=== PATIENT | female | born 1975 | race Caucasian/White ===

== ENCOUNTER 2018-03-14 11:40 | Emergency (ER) | payer OTHER ==
[~2018-03-14] VITALS: Ht 152.4 cm; Wt 127.0 kg
[2018-03-14 12:28] VITALS: BP 134/77
== END 2018-03-14 13:12 | disposition home or self-care (01) ==
LOC: ER 11:46
DX: L03.317 Cellulitis of buttock (principal)

== ENCOUNTER 2018-08-07 12:18 | Emergency (ER) | payer OTHER ==
[~2018-08-07] VITALS: Ht 152.4 cm; Wt 117.9 kg
[2018-08-07 12:45] VITALS: BP 156/95
== END 2018-08-07 13:53 | disposition home or self-care (01) ==
LOC: ER 12:18
DX: B35.6 Tinea cruris (principal)

== ENCOUNTER 2019-05-17 11:21 | Emergency (ER) | payer OTHER ==
[~2019-05-17] VITALS: Ht 152.4 cm; Wt 117.5 kg
[2019-05-17 11:40] VITALS: BP 123/81
[2019-05-17] MEDS ORDERED: IPRATROPIUM BROM 0.5 MG/2.5ML INH SOL NEB ONE (12:30)
[2019-05-17] MEDS ORDERED: ALBUTEROL SULF 2.5 MG/0.5ML(0.5%) NEB SOLN NEB ONE (12:30)
[2019-05-17] MEDS ORDERED: methylPREDNISolone SOD SUCC 125 MG/2 ML VL IM ONE (12:30)
== END 2019-05-17 13:13 | disposition home or self-care (01) ==
LOC: ER 11:25
DX: J20.9 Acute bronchitis, unspecified (principal)
CPT/HCPCS: 71046; 94640; 96372; 99283; J2930; J7644

== ENCOUNTER 2021-01-06 08:37 | Emergency (ER) | payer OTHER ==
[~2021-01-06] VITALS: Ht 152.4 cm; Wt 108.9 kg
[2021-01-06 09:04] VITALS: BP 124/80
[2021-01-06] MEDS ORDERED: LACTULOSE 20Gm/30ML SOLN PO ONE (09:30)
== END 2021-01-06 09:40 | disposition home or self-care (01) ==
LOC: ER 08:37
DX: K59.00 Constipation, unspecified (principal); K64.4 Residual hemorrhoidal skin tags; I10 Essential (primary) hypertension; Z86.73 Personal history of transient ischemic attack (TIA), and cerebral infarction without residual deficits
CPT/HCPCS: 74018

== ENCOUNTER 2022-11-19 10:01 | Emergency (ER) | payer OTHER ==
[~2022-11-19] VITALS: Ht 152.4 cm; Wt 123.0 kg
[2022-11-19 10:34] VITALS: BP 135/72; PULSE 82; RESP 18; TEMP 97.2; O2SAT 97
[2022-11-19] MEDS ORDERED: IBUP-1455 PO (11:42)
== END 2022-11-19 11:44 | disposition home or self-care (01) ==
LOC: ER 10:01
DX: S96.912A Strain of unspecified muscle and tendon at ankle and foot level, left foot, initial encounter (principal); M25.472 Effusion, left ankle; W18.09XA Striking against other object with subsequent fall, initial encounter; Y93.E1 Activity, personal bathing and showering; Y92.89 Other specified places as the place of occurrence of the external cause; Y99.8 Other external cause status
CPT/HCPCS: 73610; 73620

== ENCOUNTER 2023-07-15 13:52 | Emergency (ER) | payer OTHER ==
[~2023-07-15] VITALS: Ht 152.4 cm; Wt 134.0 kg
[~2023-07-15 13:52] MED LIST: IBUP-1455 PO
[2023-07-15 16:23] LABS: Urine Bacteria None Seen /hpf (None Seen)
[2023-07-15 16:43] LABS: Urine Blood 3+ /uL (Negative); Urine Clarity Ex.Turbid (Clear); Urine Color Light-Red (Yellow); Urine Protein, UAD 2+ (Negative); Urine Specific Gravity 1.019 (1.001-1.035); Urine Urobilinogen Normal (Negative); Urine WBC 985 /hpf (0 - 5)
[2023-07-15 18:26] VITALS: BP 145/77; PULSE 16; RESP 96; TEMP 97; O2SAT 89
[2023-07-15] MEDS ORDERED: NITR-52 PO (19:08)
== END 2023-07-15 19:30 | disposition home or self-care (01) ==
LOC: ER 13:52
DX: N39.0 Urinary tract infection, site not specified (principal); E11.9 Type 2 diabetes mellitus without complications; I10 Essential (primary) hypertension; Z86.73 Personal history of transient ischemic attack (TIA), and cerebral infarction without residual deficits
CPT/HCPCS: 81001

== ENCOUNTER 2024-01-22 10:18 | Emergency (ER) | payer OTHER ==
[~2024-01-22] VITALS: Ht 152.4 cm; Wt 120.2 kg
[~2024-01-22 10:18] MED LIST changes: +NITR-52 PO
--- NOTE | 2024-01-22 11:23 | ED.PDOC ---
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 Chief Complaint: Animal Bite Time Seen by MD: 10:36 Primary Care Provider: DR BOWSER History of Present Illness: Nurses Notes, Medications, Allergies Allergies: Coded Allergies: NO KNOWN ALLERGIES (Unverified , 03/14/18) Home Meds Active Scripts Nitrofurantoin (Nitrofurantoin) 100 Mg Cap, 1 CAP PO BID for 7 Days, #14 CAP Prov:ANJANA BRADSHAW PAC 07/15/23 Ibuprofen Micronized (Ibuprofen) 800 Mg Tab, 800 MG PO TID, #30 TAB Prov:DEVAN MENDOZA SALESFORCE CONSULTANT 11/19/22 Information Source: Patient Mode of Arrival: Ambulatory Past Medical History PAST MEDICAL HISTORY: Anxiety, CVA, HTN Surgical History: Denies all surgeries LCSW History: No Pertinent LCSW History Family History Family History: Reviewed,noncontributory to illness Social History Smoker: Non-Smoker Lives In: Home All Other Systems: Reviewed and Negative (Per HPI) Physical Exam General Appearance: No Apparent Distress, Normal HEENT: Normal ENT Inspection, Pharynx Normal, TMs Normal Neck: Full Range of Motion, Non-Tender, Normal, Normal Inspection Respiratory: Chest Non-Tender, Lungs Clear, No Accessory Muscle Use, No Respiratory Distress, Normal Breath Sounds Cardiovascular: No Edema, No JVD, No Murmur, No Gallop, Normal Peripheral Pulses, Regular Rate/Rhythm Breast Exam: Deferred Gastrointestinal: No Organomegaly, Non Tender, No Pulsatile Mass, Normal Bowel Sounds, Soft Genitalia: Deferred Pelvic: Deferred Rectal: Deferred Extremities: No calf tenderness, Normal capillary refill, Normal inspection, Normal range of motion, Non-tender, No pedal edema Musculoskeletal : Apperance: Normal Neurologic: Alert, sandblast or shotblast equipment tender II-XII nml as Tested, No Motor Deficits, Normal Affect, Normal Mood, No Sensory Deficits Cerebellar Function: Normal Reflexes: Normal Skin: Dry, Normal Color, Warm Lymphatic: No Adenopathy Was a procedure done? Was a procedure done?: No Images 1 - pin point wound. Distal neuro sensation intact. Full ROM. Cap refill less than 2 seconds Differential Diagnosis (INTG) Differential Diagnosis: Cellulitis, Contusion, Hematoma, Puncture Wound X-Ray, Labs, Meds, VS Vital Signs Date Time Temp Pulse Resp B/P (MAP) Pulse Ox O2 Delivery O2 Flow Rate FiO2 01/22/24 11:26 97.6 82 18 156/100 (118) 99 97.6 01/22/24 11:26 82 18 99 Room Air 01/22/24 11:10 84 01/22/24 10:34 97.4 86 16 152/99 (116) 99 Lab Test 01/22/24 12:00 01/22/24 11:26 Range/Units White Blood Count 8.4 4.4-10.8 10^3/uL Red Blood Count 4.04 4.0-5.20 10^6/uL Hemoglobin 10.3 L 12.2-16.2 g/dL Hematocrit 31.7 L 36.0-46.0 % Mean Corpuscular Volume 78.6 L 80.0-100.0 fL Mean Corpuscular Hemoglobin 25.5 L 28.0-32.0 pg Mean Corpuscular Hemoglobin Concent 32.5 32.0-36.0 g/dL Red Cell Distribution Width 16.0 H 11.8-14.3 % Platelet Count 406 140-450 10^3/uL Mean Platelet Volume 7.3 6.9-10.8 fL Neutrophils (%) (Auto) 60.7 37.0-80.0 % Lymphocytes (%) (Auto) 30.6 10.0-50.0 % Monocytes (%) (Auto) 4.7 0.0-12.0 % Eosinophils (%) (Auto) 3.1 0.0-7.0 % Basophils (%) (Auto) 0.9 0.0-2.0 % Neutrophils # (Auto) 5.1 1.6-8.6 10 ^3/uL Lymphocytes # (Auto) 2.6 0.4-5.4 10 ^3/uL Monocytes # (Auto) 0.4 0-1.3 10 ^3/uL Eosinophils # (Auto) 0.3 0-0.8 10 ^3/uL Basophils # (Auto) 0.1 0-0.2 10 ^3/uL Nucleated Red Blood Cells 0.1 % Sodium Level 138 136-145 mmol/L Potassium Level 4.1 3.5-5.1 mmol/L Chloride Level 106 98-107 mmol/L Carbon Dioxide Level 29 20-31 mmol/L Anion Gap 3 L 5-15 Blood Urea Nitrogen 8 L 9-23 mg/dL Creatinine 1.08 H 0.550-1.02 mg/dL Glomerular Filtration Rate Calc 64 >90 mL/min BUN/Creatinine Ratio 7.4 L 10.0-20.0 Serum Glucose 104 74-106 mg/dL Calcium Level 9.7 8.7-10.4 mg/dL Urine Color Yellow Yellow Urine Clarity Turbid H Clear Urine pH 6.0 5.0-9.0 Urine Specific [place] 1.021 1.001-1.035 Urine Protein Trace H Negative Urine Ketones Negative Negative Urine Blood Negative Negative /uL Urine Nitrite Negative Negative Urine Bilirubin Negative Negative Urine Urobilinogen Normal Negative mg/dL Urine Leukocyte Esterase Negative Negative /uL Urine RBC 1 0 - 4 /hpf Urine WBC 6 0 - 5 /hpf Urine Squamous Epithelial Cells Mod <5 /hpf Urine Bacteria Few H None Seen /hpf Urine Mucus Few None Seen Urine Glucose Normal Normal mg/dL Current Medications Medications (Trade) Dose Ordered Sig/Shar Route Start Time Stop Time Status Last Admin Diphtheria/ Tetanus/Acell Pertussis (Boostrix T-Dap) 0.5 ml ONCE ONCE IM 01/22/24 11:30 01/22/24 11:31 DC 01/22/24 12:33 Ampicillin Sodium/ Sulbactam Sodium 3 gm/Sodium Chloride 100 ml @ 100 mls/hr ONCE ONCE IV 01/22/24 11:30 01/22/24 12:29 DC 01/22/24 12:38 [id number]: [id number] : 1975 LOC: ER ROOM / BED: / AGE / SEX: 48 / F ADM STATUS: REG ER SERVICE 1121 ORDERING PHYSICIAN: KODAK JAMES NP PROCEDURE(s): LHAN - L HAND 3V XRAY REASON: Dog bite ORDER NUMBER(s): [id number], ACCESSION NUMBER(s): [id number] CLINICAL INDICATION: Dog bite TECHNIQUE: XY L HAND 3V XRAY Comparison: None FINDINGS: There is no evidence of acute fracture or dislocation. The visualized joint space is well maintained. The alignment is anatomical. There is no radiopaque foreign body. IMPRESSION: No acture fracture ATED BY: MARIAM CAGE MD DICTATED DATE/TIME: 01/22/241212 SIGNED BY: MARIAM CAGE MD SIGNED DATE/TIME: 01/22/241212 CC: X-Ray, Labs, Meds, VS Comment Discharge with strict follow-up in 24 to 48 hours for wound recheck No signs of systemic illness, no signs of cellulitis Prescribed p.o. antibiotics for presentation of symptoms Complete course of antibiotic therapy even if symptoms improve or resolve. There should be no leftover antibiotics as this can lead to antibiotic resistant bacteria and even worse infection. Patient verbalized understanding. Potential side effects discussed with patient including abdominal pain, nausea, diarrhea. Recommended probiotics and return precautions given Persistent diarrhea Dehydration Blood in stool Ill-appearing Patient is stable for discharge at this time. External notes reviewed. Test results and diagnostic imaging interpreted. All diagnostic findings, discharge care, education and instructions provided Follow-up with PCP in 2 to 3 days Patient verbalized understanding and agreed to treatment plan Vital signs stable, afebrile, no acute distress noted Patient ambulatory with strong steady gait Advised to return precautions for any new or worsening symptoms, return to ER immediately for re-evaluation Patient is aware that the purpose of this visit was for an acute medical emergency requiring emergent stabilization. Chronic conditions, including malignancies have not been ruled out. Patient is instructed to follow up with PCP as directed and discharge instructions for continued care and workup. If unable to arrange follow-up, patient is to return to the emergency department for reassessment. Patient (parent or legal guardian if applicable) was given verbal and written discharge instructions and acknowledges understanding. Time of 1ST Reevaluation: 11:21 Reevaluation 1ST: Improved Patient Education/Counseling: Diagnosis, Treatment Family Education/Counseling: Diagnosis, Treatment Departure 1 Departure Time of Disposition: 13:18 Impression: Primary Impression: Dog bite Qualified Codes: W54.0XXA - Bitten by dog, initial encounter Disposition: HOME / SELF CARE / HOMELESS Condition: Stable e-Prescriptions Ibuprofen (Ibuprofen) 600 Mg Tab 1 TAB PO TID for 10 Days, #30 TAB 0 Refills Prov: KODAK JAMES NP 01/22/24 Amoxicillin & Pot Clavulanate (AUGMENTIN TABLET) 875 Mg Tb 875 MG PO BID for 7 Days, #14 TAB 0 Refills Prov: KODAK JAMES NP 01/22/24 Discharged With: Self Critical Care Note Critical Care Time?: No Stability Stability form required: No Heart Score Heart Score: Heart Score Response (Comments) Value History N/A 0 EKG N/A 0 Age N/A 0 Risk Factors N/A 0 Troponin N/A 0 Total 0 KODAK JAMES NP Jan 22, 2024 11:22
[2024-01-22 11:26] VITALS: TEMP 97.6
--- NOTE | 2024-01-22 12:15 | DVH ---
CLINICAL INDICATION: Dog bite TECHNIQUE: XY L HAND 3V XRAY Comparison: None FINDINGS: There is no evidence of acute fracture or dislocation. The visualized joint space is well maintained. The alignment is anatomical. There is no radiopaque foreign body. IMPRESSION: No acture fracture
[2024-01-22 12:16] LABS: Basophils # (auto) 0.1 10 ^3/uL (0-0.2); Basophils % (auto) 0.9 % (0.0-2.0); Eosinophils # (auto) 0.3 10 ^3/uL (0-0.8); Eosinophils % (auto) 3.1 % (0.0-7.0); Hematocrit 31.7 % (36.0-46.0); Hemoglobin 10.3 g/dL (12.2-16.2); Lymphocytes # (auto) 2.6 10 ^3/uL (0.4-5.4); Lymphocytes % (auto) 30.6 % (10.0-50.0); Mean Corpuscular Hemoglobin 25.5 pg (28.0-32.0); Mean Corpuscular Hgb Conc. 32.5 g/dL (32.0-36.0); Mean Corpuscular Volume 78.6 fL (80.0-100.0); Monocytes # (auto) 0.4 10 ^3/uL (0-1.3); Monocytes % (auto) 4.7 % (0.0-12.0); Neutrophils # (auto) 5.1 10 ^3/uL (1.6-8.6); Neutrophils % (auto) 60.7 % (37.0-80.0); Nucleated Red Blood Cells % 0.1 %; Platelet Count (auto) 406 10^3/uL (140-450); Red Blood Cells 4.04 10^6/uL (4.0-5.20); White Blood Cell 8.4 10^3/uL (4.4-10.8)
[2024-01-22 12:30] LABS: Chloride 106 mmol/L (98-107); Potassium 4.1 mmol/L (3.5-5.1); Sodium 138 mmol/L (136-145)
[2024-01-22 12:31] LABS: Anion Gap 3 (5-15); Calcium 9.7 mg/dL (8.7-10.4); Carbon Dioxide 29 mmol/L (20-31)
[2024-01-22] MEDS: TETANUS-DIPTH-ACEL PERTUSSIS 0.5ML SYR Tdap IM ONE (12:33)
[2024-01-22 12:36] LABS: BUN/Creatinine Ratio 7.4 (10.0-20.0); Blood Urea Nitrogen 8 mg/dL (9-23); Glucose 104 mg/dL (74-106)
[2024-01-22] MEDS: AMPICILLIN & SULBACTAM SODIUM 3 GM in SODIUM CHL 0.9% 100 ML IV ONE (12:38)
[2024-01-22 12:44] LABS: Urine Bacteria FEW /hpf (None Seen); Urine Blood Negative /uL (Negative); Urine Clarity Turbid (Clear); Urine Color Yellow (Yellow); Urine Mucus FEW (None Seen); Urine Protein, UAD TRACE (Negative); Urine Specific Gravity 1.021 (1.001-1.035); Urine Urobilinogen Normal (Negative); Urine WBC 6 /hpf (0 - 5)
--- NOTE | 2024-01-22 12:52 | ECG ---
[facility] Test Date: 2024-01-22 Test Time: 11:10:08 Pat Name: OZIEL ANDINO Department: ER Room: Gender: F Preparator: GP : 1975 Requested By: KODAK JAMES Order Number: [id number] Reading MD: Measurements Intervals [place] Rate: 84 P: 32 NV: 198 QRS: 52 QRSD: 80 T: 31 QT: 361 QTc: 427 Interpretive Statements Sinus rhythm Probable left atrial enlargement Low voltage, precordial leads Please click the below link to view image of tracing.
[2024-01-22] MEDS ORDERED: IBUP-1454 PO (13:19)
[2024-01-22] MEDS ORDERED: AUG875T PO (13:19)
[2024-01-22 13:31] VITALS: BP 140/82; PULSE 82; RESP 18; O2SAT 100
== END 2024-01-22 13:32 | disposition home or self-care (01) ==
LOC: ER 10:18
DX: S61.052A Open bite of left thumb without damage to nail, initial encounter (principal); I10 Essential (primary) hypertension; F41.9 Anxiety disorder, unspecified; E11.9 Type 2 diabetes mellitus without complications; Z86.73 Personal history of transient ischemic attack (TIA), and cerebral infarction without residual deficits; Z79.1 Long term (current) use of non-steroidal anti-inflammatories (NSAID); Z79.899 Other long term (current) drug therapy; W54.0XXA Bitten by dog, initial encounter; Y93.89 Activity, other specified; Y92.89 Other specified places as the place of occurrence of the external cause; Y99.8 Other external cause status
CPT/HCPCS: 36415; 73130; 80048; 81001; 85025; 90471; 90715; 93005; 96365

== ENCOUNTER 2025-02-14 07:05 | Emergency (ER) | payer OTHER ==
[~2025-02-14] VITALS: Ht 152.4 cm; Wt 127.8 kg
[~2025-02-14 07:05] MED LIST changes: +AUG875T PO; +IBUP-1454 PO
--- NOTE | 2025-02-14 07:38 | ED.PDOC ---
History of Present Illness(SKN HPI Comments 49 y.o female presents to the ED for an evaluation of a animal bite. Patient has swelling and redness on the palm region of their right hand following a dog bite Chief Complaint: Animal Bite Time Seen by MD: 07:39 Primary Care Provider: DR BOWSER History of Present Illness: Nurses Notes, Medications, Allergies Allergies: Coded Allergies: NO KNOWN ALLERGIES (Unverified , 03/14/18) Home Meds Active Scripts Ibuprofen (Ibuprofen) 600 Mg Tab, 1 TAB PO TID for 10 Days, #30 TAB 0 Refills Prov:KODAK JAMES INDUSTRIAL ANALYST 01/22/24 Amoxicillin & Pot Clavulanate (AUGMENTIN TABLET) 875 Mg Tb, 875 MG PO BID for 7 Days, #14 TAB 0 Refills Prov:KODAK JAMES INDUSTRIAL ANALYST 01/22/24 Nitrofurantoin (Nitrofurantoin) 100 Mg Cap, 1 CAP PO BID for 7 Days, #14 CAP Prov:ANJANA BRADSHAW PAC 07/15/23 Ibuprofen Micronized (Ibuprofen) 800 Mg Tab, 800 MG PO TID, #30 TAB Prov:DEVAN MENDOZA INDUSTRIAL ANALYST 11/19/22 Information Source: Patient Mode of Arrival: Ambulatory Severity: Moderate Timing: Hours Duration: Since onset Location: Hand Mechanism: Dog Object: Other Condition of Object: Other Wound Type: Puncture History of: None Associated Signs and Symptoms: Redness, Swelling Past Medical History PAST MEDICAL HISTORY: Anxiety, CVA, HTN Surgical History: Denies all surgeries HEAD LIBRARIAN History: No Pertinent HEAD LIBRARIAN History Family History Family History: Reviewed,noncontributory to illness Social History Smoker: Non-Smoker Alcohol: Denies ETOH Use Drugs: Denies Drug Use Lives In: Home Constitutional: denies: chills, diaphoresis, fatigue, fever, malaise, sweats, weakness, others EENTM: denies: blurred vision, double vision, ear bleeding, ear discharge, ear drainage, ear pain, ear ringing, eye pain, eye redness, hearing loss, mouth pain, mouth swelling, nasal discharge, nose bleeding, nose congestion, nose pain, photophobia, tearing, throat pain, throat swelling, voice changes, others Respiratory: denies: cough, hemoptysis, orthopnea, SOB at rest, shortness of breath, SOB with excertion, stridor, wheezing, others Cardiovascular: denies: chest pain, dizzy spells, diaphoresis, Dyspnea on exertion, edema, irregular heart beat, left arm pain, lightheadedness, palpitations, PND, syncope, others Gastrointestinal: denies: abdomen distended, abdominal pain, blood streaked bowels, constipated, diarrhea, dysphagia, difficulty swallowing, hematemesis, melena, nausea, poor appetite, poor fluid intake, rectal bleeding, rectal pain, vomiting, others Genitourinary: denies: abnormal vagina bleeding, burning, dyspareunia, dysuria, flank pain, frequency, hematuria, incontinence, pain, , vagina discharge, urgency, others Neurological: denies: dizziness, fainting, headache, left sided numbness, left sided weakness, numbness, paresthesia, pre-existing deficit, right sided numbness, right sided weakness, seizure, speech problems, tingling, tremors, weakness, others Musculoskeletal: denies: back pain, gout, joint pain, joint swelling, muscle pain, muscle stiffness, neck pain, others Integumetry: reports: wounds (Right hand (palm) ); denies: bruises, change in color, change in hair/nails, dryness, laceration, lesions, lumps, rash, others Allergic/Immunocompromised: denies: Difficulty Healing, Frequent Infections, Hives, Itching, others Hematologic/Lymphatic: denies: anemia, blood clots, easy bleeding, easy bruising, swollen glands, others Endocrine: denies: excessive hunger, excessive sweating, excessive thirst, excessive urination, flushing, intolerance to cold, intolerance to heat, unexplained weight gain, unexplained weight loss, others Psychiatric: denies: anxiety, bipolar disorder, depression, hopeless, panic disorder, schizophrenia, sleepless, suicidal, others All Other Systems: Reviewed and Negative Physical Exam General Appearance: No Apparent Distress, Normal HEENT: Normal ENT Inspection, Pharynx Normal, TMs Normal Neck: Full Range of Motion, Non-Tender, Normal, Normal Inspection Respiratory: Chest Non-Tender, Lungs Clear, No Accessory Muscle Use, No Respiratory Distress, Normal Breath Sounds Cardiovascular: No Edema, No JVD, No Murmur, No Gallop, Normal Peripheral Pulses, Regular Rate/Rhythm Breast Exam: Deferred Gastrointestinal: No Organomegaly, Non Tender, No Pulsatile Mass, Normal Bowel Sounds, Soft Genitalia: Deferred Pelvic: Deferred Rectal: Deferred Extremities: Swelling, Other (Adherent more swollen than the left. Has 3 small bites to the right thenar eminence below the thumb on the palmar aspect. One is a punctate lesion with no surrounding erythema. None other has a 0.5 mm no surrounding erythema. The other laceration has a proximally 1 cm with surrounding erythema.) Musculoskeletal : Apperance: Normal Neurologic: Alert, corporate safety manager II-XII nml as Tested, No Motor Deficits, Normal Affect, Normal Mood, No Sensory Deficits Cerebellar Function: Normal Reflexes: Normal Skin: Dry, Normal Color, Warm Lymphatic: No Adenopathy Was a procedure done? Was a procedure done?: No Differential Diagnosis (INTG) Differential Diagnosis: Abrasion, Cellulitis, Puncture Wound Differential Diagnosis: Abscess, Erythema multiforme X-Ray, Labs, Meds, VS Vital Signs Date Time Temp Pulse Resp B/P (MAP) Pulse Ox O2 Delivery O2 Flow Rate FiO2 02/14/25 07:09 98.3 85 19 147/89 97 98.3 Current Medications Medications (Trade) Dose Ordered Sig/Shar Route Start Time Stop Time Status Last Admin Ketorolac Tromethamine (Toradol Injection) 30 mg ONCE ONCE IM 02/14/25 08:00 02/14/25 08:01 DC 02/14/25 08:49 49-year-old female presents here with dog bite to the right hand that was three days ago. Patient states her dogs were fighting and she went to break up the fight when she got bit. She states otherwise her dog as a very good dog. Patient has a known diabetic. On my examination the right hand is swollen compared to the left. She has three small lacerations to right palmar thenar eminence. The largest laceration which is approximately 1 cm does have mild erythema surrounding it. Patient's tetanus status is up-to-date. At this time I have ordered an x-ray of the right hand to ensure there is no foreign body, tooth in the wound. Order has been placed to have the wound irrigated and cleansed. Patient has been given Toradol in the ER. X-ray with no evidence of foreign body. Wound has been cleaned extensively with normal saline and Betadine. I have given her Rocephin 1 g IM in the ER. I have discharge the patient home with Augmentin and I have given her strict return precautions that if the swelling and/or erythema become worse seems to return back to the ER immediately. I have also advised her to return back to the ER in 24 hours for re-evaluation of her wound especially given she is a diabetic. Patient agreeable and understands. Patient generally well-appearing at this time and nontoxic. Time of 1ST Reevaluation: 08:30 Reevaluation 1ST: Unchanged Patient Education/Counseling: Diagnosis, Treatment, Prognosis Family Education/Counseling: No Family Present SEPSIS Sepsis Screen Date sepsis recognized/suspect: Feb 14, 2025 Time Sepsis recognized/suspect: 712 Recent Procedure: No On Antibiotic Therapy: No Respiratory Rate >20: No Heart Rate >90: No Temp<36 C (96.8 F) or >38.3 C: No SBP <90 or MAP <65 mmHG: No New Acute Mental Status Change: No Is the patient on CPAP, BIPAP,: No Physician Orders R Hand 3 View Xray (02/14/25 07:59) Check Blood Glucose (02/14/25 08:14) Cleanse Wound With Ns (02/14/25 08:14) Vital Signs Date Time Temp Pulse Resp B/P (MAP) Pulse Ox O2 Delivery O2 Flow Rate FiO2 02/14/25 07:09 98.3 85 19 147/89 97 98.3 Medications Medications Dose Ordered Sig/Shar Route Start Time Stop Time Status Last Admin Dose Admin Ketorolac Tromethamine 30 mg ONCE ONCE IM 02/14/25 08:00 02/14/25 08:01 DC 02/14/25 08:49 Departure 1 Departure Time of Disposition: 09:47 Impression: Primary Impression: Dog bite Qualified Codes: W54.0XXA - Bitten by dog, initial encounter Additional Impression: Cellulitis Qualified Codes: L03.113 - Cellulitis of right upper limb Disposition: 01 HOME / SELF CARE / HOMELESS Condition: Fair Additional Instructions: Return back to the ER in 24 hours for wound re-evaluation. Please return sooner if redness is worsening. If there is worsening swelling to the right hand, you began to have fevers or there is purulent discharge from the hand. e-Prescriptions Amoxicillin & Pot Clavulanate (AUGMENTIN TABLET) 875 Mg Tb 875 MG PO BID for 10 Days, #20 TAB Prov: MARIA DEL CARMEN GRAHAM MD 02/14/25 Critical Care Note Critical Care Time?: No Stability Stability form required: No I personally scribed for MARIA DEL CARMEN GRAHAM MD ([email or web address]) on 02/14/25 at 07:38. Electronically submitted by Tahira Bailey ([facility]). I personally scribed for MARIA DEL CARMEN GRAHAM MD ([email or web address]) on 02/14/25 at 07:44. Electronically submitted by Tahira Bailey ([facility]). MARIA DEL CARMEN GRAHAM MD Feb 14, 2025 07:38
--- NOTE | 2025-02-14 08:41 | DVH ---
X-ray right hand Technique: AP lateral and oblique views REASON FOR EXAM: Rule out foreign body INDICATION: Rule out foreign body FINDINGS: No fractures or dislocations. No erosions or periosteal reaction. Articular surfaces are smooth. IMPRESSION: 1. No fracture or foreign body.
[2025-02-14] MEDS: KETOROLAC TROMETH 60MG/2ML VIAL IM ONE (08:49)
[2025-02-14] MEDS ORDERED: AUG875T PO (09:49)
[2025-02-14 10:17] VITALS: O2SAT 100
[2025-02-14] MEDS ORDERED: cefTRIAXone SOD 1,000 MG VL ONE (10:48)
[2025-02-14] MEDS: cefTRIAXone W LIDOCAINE 1 GM IM IM ONE (11:08)
[2025-02-14 11:35] VITALS: BP 147/87; PULSE 81; RESP 17; TEMP 97.8
== END 2025-02-14 11:38 | disposition home or self-care (01) ==
LOC: ER 07:05
DX: S61.451A Open bite of right hand, initial encounter (principal); L03.113 Cellulitis of right upper limb; F41.9 Anxiety disorder, unspecified; I10 Essential (primary) hypertension; Z79.899 Other long term (current) drug therapy; Z86.73 Personal history of transient ischemic attack (TIA), and cerebral infarction without residual deficits; Z79.1 Long term (current) use of non-steroidal anti-inflammatories (NSAID); W54.0XXA Bitten by dog, initial encounter; Y93.89 Activity, other specified; Y92.89 Other specified places as the place of occurrence of the external cause; Y99.8 Other external cause status
CPT/HCPCS: 73130; 96372; 99284; J0696; J1885